=== PATIENT | male | born 1935 | race Caucasian/White ===

== ENCOUNTER 2017-06-02 08:55 | Outpatient (CLI) | payer MEDICARE ==
[2017-06-02 09:27] LABS: ALT (SGPT) 18 U/L (8-55); AST (SGOT) 18 U/L (5-34); Albumin 3.4 g/dL (3.4-4.8); Alkaline Phosphatase 80 U/L (40-150); Bilirubin, Direct 0.1 mg/dL (0.1-0.3); Bilirubin, Total 0.2 mg/dL (0.2-1.2); Protein, Total 5.7 g/dL (5.8-8.1)
[2017-06-02 18:10] LABS: Dilantin 18.3 ug/mL (10.0-20.0)
== END 2017-06-02 08:56 | disposition home or self-care (01) ==
LOC: BURLABSP 08:55
PROVIDERS: ATTEND Clinical Nurse Specialist Medical-Surgical
DX: G40.909 Epilepsy, unspecified, not intractable, without status epilepticus (principal); M81.0 Age-related osteoporosis without current pathological fracture; R53.83 Other fatigue; M62.50 Muscle wasting and atrophy, not elsewhere classified, unspecified site
CPT/HCPCS: 36415; 80076; 80185; 82306

== ENCOUNTER 2018-01-05 19:10 | Emergency (ER) | payer MEDICARE ==
[2018-01-05] MEDS ORDERED: Adacel (T-DAP) 0.5 ML VIAL ONE (19:40)
--- NOTE | 2018-01-05 23:19 | RAD ---
LEFT HAND THREE VIEWS: 01/05/18 No fracture or oblique foreign body was seen. Degenerative changes are seen in some of the IP joints of the fingers. There are also degenerative changes in the MCP joints. The carpal relations seem norm al. No acute carpal changes were seen. Degenerative change is particularly severe in the first carpom etacarpal joint. IMPRESSION: Degenerative changes as noted. POS: HOME
== END 2018-01-05 20:22 | disposition home or self-care (01) ==
LOC: BURERS 19:10
DX: S61.412A Laceration without foreign body of left hand, initial encounter (principal); G20 Parkinson's disease; M19.042 Primary osteoarthritis, left hand; W22.8XXA Striking against or struck by other objects, initial encounter; Y92.59 Other trade areas as the place of occurrence of the external cause
CPT/HCPCS: 12002; 90471; 90715; J2001

== ENCOUNTER 2018-01-11 10:52 | Outpatient (CLI) | payer MEDICARE ==
--- NOTE | 2018-01-12 07:28 | ULT ---
BILATERAL CAROTID ULTRASOUND 01/11/18 Color duplex doppler ultrasonography of the carotid and vertebral system was performed. The study was done to investigate carotid bruits. No significant amounts of plaque were seen in either carotid artery. Small amounts of intimal thicken ing are seen around the left carotid bifurcation. Flows were normal in the carotid systems bilaterally. Peak flow in the right ICA was 58/18 cm/s with a systolic velocity ratio of 0.97. This is normal. Flows in the left ICA were 88/22 with a normal 1.1 8 systolic velocity ratio. Flows in each common and external carotid arteries were normal bilaterally . Vertebral flow was antegrade bilaterally. IMPRESSION: No evidence of hemodynamically significant stenoses. POS: HOME
== END 2018-01-11 10:53 | disposition home or self-care (01) ==
LOC: BURULT 10:52
PROVIDERS: ATTEND Family Medicine
DX: R09.89 Other specified symptoms and signs involving the circulatory and respiratory systems (principal)
CPT/HCPCS: 93880

== ENCOUNTER 2019-07-15 13:45 | Emergency (ER) | payer MEDICARE ==
[2019-07-15] MEDS ORDERED: traMADol HCl 50 MG TAB ONE (14:33)
--- NOTE | 2019-07-15 17:51 | RAD ---
LEFT SHOULDER THREE VIEWS: Date: 07-15-19 FINDINGS: No fracture, dislocation, or AC joint widening was seen. The visible adjacent ribs appeared intact an d the visible portions of the left lung were clear. There is some bony spurring in the glenohumeral j oint. IMPRESSION: No acute traumatic finding. POS: HOME
--- NOTE | 2019-07-15 17:52 | CT ---
CT BRAIN WITHOUT CONTRAST: Date: 07-15-19 FINDINGS: The ventricles are minimally dilated, consistent with the degree of atrophy that is present. There is no ventricular shift. No intracranial bleeding or extraaxial hematoma was seen. There is no sign of mass, acute stroke, or edema. The skull appears intact. The visible paranasal sinuses are clear. Some of the mastoid air cells on the left near the mastoid tip are opaque, probably a long-standing findi ng. IMPRESSION: No acute intracranial findings. POS: HOME
== END 2019-07-15 14:40 | disposition home or self-care (01) ==
LOC: BURERS 13:45
DX: S40.012A Contusion of left shoulder, initial encounter (principal); S00.01XA Abrasion of scalp, initial encounter; W18.30XA Fall on same level, unspecified, initial encounter; Z79.899 Other long term (current) drug therapy
CPT/HCPCS: 70450

== ENCOUNTER 2019-10-17 14:59 | Emergency (ER) | payer MEDICARE ==
[2019-10-17 15:46] LABS: #Basophils 0.1 thou/uL (0.0-0.2); #Eosinphils 0.2 thou/uL (0.0-0.7); #Lymphocytes 1.9 thou/uL (1.20-3.40); #Monocytes 0.6 thou/uL (0.11-0.59); #Neutrophils 3.4 thou/uL (1.40-6.50); %Basophils 1.1 % (0.0-1.0); %Eosinophils 3.8 % (0.0-10.0); %Lymphocytes 31.1 % (21.0-51.0); %Neutrophils 53.9 % (42.0-75.0); Hemoglobin 11.8 g/dL (14.0-18.0); Mean Corpuscular Hemoglobin 33.3 pg (27.0-31.0); Mean Platelet Volume 6.2 fL (7.4-10.4); Platelet Count 250 thou/uL (130-400); RBC Distribution Width 12.3 % (11.5-14.5); Red Blood Cell (RBC) Count 3.54 mill/uL (4.70-6.10); White Blood Cell (WBC) Count 6.2 thou/uL (4.8-10.8)
[2019-10-17 16:02] LABS: ALT (SGPT) 14 U/L (8-55); AST (SGOT) 23 U/L (5-34); Albumin 4.2 g/dL (3.4-4.8); Alkaline Phosphatase 76 U/L (40-110); Anion Gap 13 mmol/L (10-20); BUN (Urea Nitrogen) 17 mg/dL (8.4-25.7); Bilirubin, Total 0.5 mg/dL (0.2-1.2); Calc. Creatinine Clearance 0 mL/min (70-130); Calcium 9.1 mg/dL (7.8-10.44); Carbon Dioxide 27 mmol/L (23-31); Chloride 102 mmol/L (98-107); Estimated GFR-MDRD Greater than 90; Globulin 3.2 g/dL (2.4-3.5); Glucose 101 mg/dL (83-110); Potassium 4.2 mmol/L (3.5-5.1); Protein, Total 7.4 g/dL (5.8-8.1); Sodium 138 mmol/L (136-145)
[2019-10-17] MEDS ORDERED: cefTRIAXone\\ROCEPHIN 2 GM VIAL ONE (16:29)
== END 2019-10-17 16:38 | disposition home or self-care (01) ==
LOC: BURERS 14:59
DX: L03.115 Cellulitis of right lower limb (principal); G20 Parkinson's disease; Z79.899 Other long term (current) drug therapy
CPT/HCPCS: 80053; 85025; 85379; 96374; J0696

== ENCOUNTER 2020-07-08 21:05 | Emergency (ER) | payer MEDICARE ==
[2020-07-08 22:42] LABS: #Basophils 0.1 thou/uL (0.0-0.2); #Eosinphils 0.2 thou/uL (0.0-0.7); #Lymphocytes 1.8 thou/uL (1.20-3.40); #Monocytes 0.8 thou/uL (0.11-0.59); #Neutrophils 7.1 thou/uL (1.40-6.50); %Eosinophils 2.1 % (0.0-10.0); %Lymphocytes 17.7 % (21.0-51.0); %Monocytes 8.1 % (0.0-10.0); %Neutrophils 71.1 % (42.0-75.0); Hemoglobin 12.6 g/dL (14.0-18.0); Mean Corpuscular HGB CONC 33.2 g/dL (32.0-36.0); Mean Corpuscular Hemoglobin 33.1 pg (27.0-31.0); Mean Corpuscular Volume 99.7 fL (78.0-98.0); Mean Platelet Volume 5.9 fL (7.4-10.4); Platelet Count 279 thou/uL (130-400); RBC Distribution Width 11.9 % (11.5-14.5); Red Blood Cell (RBC) Count 3.81 mill/uL (4.70-6.10)
[2020-07-08 22:56] LABS: ALT (SGPT) 23 U/L (8-55); AST (SGOT) 20 U/L (5-34); Albumin 3.9 g/dL (3.4-4.8); Alkaline Phosphatase 70 U/L (40-110); Anion Gap 16 mmol/L (10-20); BUN (Urea Nitrogen) 15 mg/dL (8.4-25.7); Bilirubin, Total 0.4 mg/dL (0.2-1.2); Calc. Creatinine Clearance 0 mL/min (70-130); Calcium 8.7 mg/dL (7.8-10.44); Carbon Dioxide 22 mmol/L (23-31); Chloride 101 mmol/L (98-107); Estimated GFR-MDRD 87; Globulin 3.3 g/dL (2.4-3.5); Glucose 120 mg/dL (83-110); Potassium 4.3 mmol/L (3.5-5.1); Protein, Total 7.2 g/dL (5.8-8.1); Sodium 135 mmol/L (136-145)
[2020-07-08] MEDS ORDERED: Lidocaine Viscous Sol 2% 15 ml UD Cup ONE (23:00)
[2020-07-09] MEDS ORDERED: Amoxicillin/Potassium Clav 875 MG TAB ONE (00:11)
--- NOTE | 2020-07-09 07:20 | CT ---
CT PELVIS WITHOUT CONTRAST: Date: 07/08/[address] of the pelvis was done following trauma. The patient is very osteopenic. This, plus his kyp hoscoliosis, decreases the sensitivity of this study somewhat. No pelvic fractures are seen. Both hips appear intact, even though osteopenic. The pelvic ring appear s intact. Degenerative changes are seen in both SI joints and the lower lumbar spine. See CT lumbar s pine for further details. There is no evidence of hematoma or significant amounts of free fluid in th e pelvis. Clips and presumably seeds are seen around the prostatic region. There is no sign of free a ir in the visualized areas. IMPRESSION: Chronic findings, but no acute traumatic changes. Preliminary report called to Dr. Lino at 2222 hours on 07/08/2020. CODE CR. POS: HOME
--- NOTE | 2020-07-09 07:26 | CT ---
CT LUMBAR SPINE: DATE: 07/08/2020 Osteopenia, kyphoscoliosis, and the overall positioning of the patient limits detail on this study so mewhat. No acute fracture of the lumbar spine was detected. There are some mild compressions of T9 through T1 2, and possibly L1. These appear more likely old than new. Degenerated discs are seen at all levels f rom T12-L1 and inferiorly. L2 and L3 are partially fused as a blocked vertebra. Central canal stenosi s is particularly notable at L3-L4, and to a lesser extent L4-L5. Disc herniations would be difficult to confirm given the anatomy present. IMPRESSION: Lumbar rotoscoliosis with multilevel degenerative disc disease, central canal stenosis (especially L3 -L4). Mild anterior wedging of T9 through T12 is probably old. Findings called to Dr. Lino at 2222 hours on 07/08/2020. CODE CR. POS: HOME
--- NOTE | 2020-07-09 08:07 | CT ---
CT THORACIC SPINE: DATE: 07/08/2020. FINDINGS: Spiral CT of the thoracic spine was done for evaluation following trauma. There is elevation of the right hemidiaphragm. There are infiltrative changes in the lower lobes posteriorly on each side, per haps a little more so on the right than the left. Some of this is doubtless chronic atelectasis, but I cannot rule out a superimposed acute infiltrate. A small hiatal hernia is noted. Regarding the thoracic spine, there is some mild anterior compression of T9 through T12 vertebral bod ies. This appears more likely old than new. I cannot definitely diagnose an acute fracture. MRI wo uld be more sensitive to such in this particular patient. Degenerative changes are present throughou t the entire thoracic spine. There is also anterior wedging of T6, but this also appears a bit more likely old than new. The upper part of the body of the sternum is angulated posteriorly a bit, but t his seems more likely old than new as well. IMPRESSION: 1. Very low sensitivity study due to the patient's kyphoscoliosis. Anterior wedging of T6 and T9 th rough T12. All of these are judged to be more likely old than new, as well as the sternal body findi ng. If focal pain continues in one certain area, then there may need to be rescanning, perhaps even with MRI if that is feasible in the patient looking for bony edema to prove an acute versus an old in jury. 2. Bibasilar streaking, particularly on the right. Cannot exclude superimposed acute infection and I do understand the patient has a low-grade fever. 3. Elevation of the right hemidiaphragm that seems more likely chronic than not. Findings discussed with Dr. Lino at 2222 on 07/08/2020. CODE CR POS: HOME
== END 2020-07-09 00:32 | disposition home or self-care (01) ==
LOC: BURERS 21:05
DX: S30.0XXA Contusion of lower back and pelvis, initial encounter (principal); J18.9 Pneumonia, unspecified organism; L89.312 Pressure ulcer of right buttock, stage 2; L89.152 Pressure ulcer of sacral region, stage 2; M40.205 Unspecified kyphosis, thoracolumbar region; G43.909 Migraine, unspecified, not intractable, without status migrainosus; G20 Parkinson's disease; M25.552 Pain in left hip; Z79.899 Other long term (current) drug therapy; W17.89XA Other fall from one level to another, initial encounter
CPT/HCPCS: 36415; 72128; 72131; 72192; 80053; 80185; 85025

== ENCOUNTER 2021-10-22 15:49 | Inpatient (IN) | payer MEDICARE ==
[2021-10-22 16:47] LABS: #Basophils 0.2 thou/uL (0.0-0.2); #Eosinphils 0.1 thou/uL (0.0-0.7); #Monocytes 1.2 thou/uL (0.11-0.59); #Neutrophils 7.5 thou/uL (1.40-6.50); %Basophils 1.6 % (0.0-1.0); %Eosinophils 0.7 % (0.0-10.0); %Neutrophils 75.7 % (42.0-75.0); Hemoglobin 11.1 g/dL (14.0-18.0); Mean Corpuscular HGB CONC 34.2 g/dL (32.0-36.0); Mean Corpuscular Hemoglobin 33.5 pg (27.0-31.0); Mean Platelet Volume 7.5 fL (7.4-10.4); Platelet Count 248 thou/uL (130-400); RBC Distribution Width 11.9 % (11.5-14.5); Red Blood Cell (RBC) Count 3.32 mill/uL (4.70-6.10); White Blood Cell (WBC) Count 9.9 thou/uL (4.8-10.8)
[2021-10-22 17:00] LABS: ALT (SGPT) 49 U/L (8-55); AST (SGOT) 55 U/L (5-34); Albumin 3.7 g/dL (3.4-4.8); Alkaline Phosphatase 67 U/L (40-110); Anion Gap 15 mmol/L (10-20); BUN (Urea Nitrogen) 11 mg/dL (8.4-25.7); Bilirubin, Total 0.4 mg/dL (0.2-1.2); Calc. Creatinine Clearance 0 mL/min (70-130); Calcium 8.4 mg/dL (7.8-10.44); Carbon Dioxide 23 mmol/L (23-31); Chloride 97 mmol/L (98-107); Globulin 3.1 g/dL (2.4-3.5); Glucose 124 mg/dL (83-110); Lipase 93 U/L (8-78); Protein, Total 6.8 g/dL (5.8-8.1); Sodium 131 mmol/L (136-145)
[2021-10-22 17:17] LABS: CKMB 1.8 ng/mL (0-6.6)
[2021-10-22 19:08] LABS: Bilirubin Small (Negative); Blood, Urine Trace (Negative); Clarity Cloudy (Clear); Glucose, Urine (Dipstick) Negative (Negative); Ketone, Urine 15 mg/dL (Negative); Leukocyte Negative (Negative); Nitrite Negative (Negative); Protein, Urine (Dipstick) 30 mg/dL (Neg-Trace); Urobilinogen 0.2 mg/dL (Less than 2); pH, Urine 8.5 (5.0-9.0)
[2021-10-22 19:16] LABS: Bacteria/HPF 1+ HPF (None Seen); RBC/HPF 0-3 HPF (0-3); Squamous Epithelial None Seen HPF (0-3); WBC/HPF 0-3 HPF (0-3)
[2021-10-22] MEDS ORDERED: Doxycycline 100 MG CAP ONE (20:09)
[2021-10-22] MEDS ORDERED: Acetaminophen 500 MG TAB ONE (20:20)
[2021-10-22] MEDS ORDERED: Sodium Chloride 0.9% 100 ML ONE (20:46)
[2021-10-22] MEDS ORDERED: cefTRIAXone\\ROCEPHIN 2 GM VIAL ONE (20:46)
[2021-10-23] MEDS ORDERED: Acetaminophen 325 MG TAB PO PRN (01:00)
[2021-10-23 02:31] VITALS: BMI 32.9
[2021-10-23] MEDS ORDERED: Polyethylene Glycol 3350 17 GM Packet PO PRN (07:13)
[2021-10-23] MEDS ORDERED: Ondansetron PF 4 MG/2 ML Vial IVP PRN (07:17)
[2021-10-23] MEDS ORDERED: Ibuprofen 800 MG TAB PO PRN (07:44)
[2021-10-23] MEDS ORDERED: FLU VACC QS2021-22(65YR UP)/PF 240 MCG/0.7 ML SYRINGE IM ONE (09:00)
[2021-10-23] MEDS: Magnesium Oxide 400 MG TAB PO SCH (10:26)
[2021-10-23] MEDS: Calcium Carbonate 600 MG + Vit D TAB PO SCH (10:27)
[2021-10-23] MEDS: Senokot S 8.6-50 MG TAB PO SCH ×2 (10:27→21:06)
[2021-10-23] MEDS: Enoxaparin Sodium 40 MG/0.4 ML SYRINGE SC SCH (10:27)
[2021-10-23] MEDS: Sodium Chloride 0.9% 1,000 ML IV SCH (10:28)
[2021-10-23] MEDS: Naproxen 500 MG TAB PO PRN (15:10)
[2021-10-23 15:52] LABS: SARS-CoV-2 NAA Rapid Test DETECTED (NotDetected)
[2021-10-23] MEDS: cefTRIAXone\\ROCEPHIN 1 GM in Sodium Chloride 0.9% 100 ML IVPB SCH (21:05)
[2021-10-24] MEDS: Sodium Chloride 0.9% 1,000 ML IV SCH ×3 (00:22→12:58)
[2021-10-24 06:31] LABS: Hemoglobin 10.6 g/dL (14.0-18.0); Mean Corpuscular HGB CONC 35.1 g/dL (32.0-36.0); Mean Corpuscular Hemoglobin 34.3 pg (27.0-31.0); Mean Corpuscular Volume 97.7 fL (78.0-98.0); Mean Platelet Volume 6.9 fL (7.4-10.4); Platelet Count 216 thou/uL (130-400); RBC Distribution Width 11.7 % (11.5-14.5); White Blood Cell (WBC) Count 5.3 thou/uL (4.8-10.8)
[2021-10-24 06:34] LABS: ALT (SGPT) 34 U/L (8-55); AST (SGOT) 35 U/L (5-34); Albumin 3.1 g/dL (3.4-4.8); Alkaline Phosphatase 57 U/L (40-110); Anion Gap 13 mmol/L (10-20); BUN (Urea Nitrogen) 12 mg/dL (8.4-25.7); Bilirubin, Total Less than 0.2 mg/dL (0.2-1.2); Calc. Creatinine Clearance 101 mL/min (70-130); Calcium 7.8 mg/dL (7.8-10.44); Carbon Dioxide 23 mmol/L (23-31); Chloride 98 mmol/L (98-107); Globulin 2.5 g/dL (2.4-3.5); Glucose 102 mg/dL (83-110); Potassium 3.7 mmol/L (3.5-5.1); Protein, Total 5.6 g/dL (5.8-8.1); Sodium 130 mmol/L (136-145)
[2021-10-24 07:06] LABS: Band 14 % (5-11); Eosinophils 1 % (0-10); Lymphocytes 12 % (21-51); MDiff Complete? YES; Metamyelocyte 1 % (0-0); Monocytes 13 % (0-10); Neutrophil 54 % (42-75); Reactive Lymphocytes 5 % (0-10)
[2021-10-24] MEDS: Senokot S 8.6-50 MG TAB PO SCH ×2 (08:50→21:14)
[2021-10-24] MEDS: Calcium Carbonate 600 MG + Vit D TAB PO SCH (08:50)
[2021-10-24] MEDS: Enoxaparin Sodium 40 MG/0.4 ML SYRINGE SC SCH (08:51)
[2021-10-24] MEDS: Magnesium Oxide 400 MG TAB PO SCH (08:51)
[2021-10-24] MEDS: Naproxen 500 MG TAB PO PRN (08:51)
[2021-10-24] MEDS ORDERED: Acetaminophen 325 MG TAB PO PRN (15:33)
[2021-10-24] MEDS ORDERED: Acetaminophen 650 MG Suppository PR PRN (15:34)
[2021-10-24] MEDS ORDERED: Benzonatate 100 MG CAP PO PRN (15:35)
[2021-10-24] MEDS ORDERED: Albuterol 200 PUFF (6.7GM INHALER) INH PRN (15:36)
[2021-10-24] MEDS: cefTRIAXone\\ROCEPHIN 1 GM in Sodium Chloride 0.9% 100 ML IVPB SCH (21:13)
[2021-10-25] MEDS: Sodium Chloride 0.9% 1,000 ML IV SCH ×3 (04:57→21:35)
[2021-10-25 05:57] LABS: ALT (SGPT) 29 U/L (8-55); AST (SGOT) 31 U/L (5-34); Albumin 2.9 g/dL (3.4-4.8); Alkaline Phosphatase 55 U/L (40-110); Bilirubin, Direct 0.1 mg/dL (0.1-0.3); Bilirubin, Total Less than 0.2 mg/dL (0.2-1.2); Protein, Total 5.2 g/dL (5.8-8.1)
[2021-10-25] MEDS: Magnesium Oxide 400 MG TAB PO SCH (10:15)
[2021-10-25] MEDS: Senokot S 8.6-50 MG TAB PO SCH ×2 (10:17→21:36)
[2021-10-25] MEDS: Calcium Carbonate 600 MG + Vit D TAB PO SCH (10:17)
[2021-10-25] MEDS: Enoxaparin Sodium 30 MG/0.3 ML SYRINGE SC SCH (10:18)
[2021-10-25] MEDS ORDERED: REMDESIVIR 200 MG in Sodium Chloride 0.9% 250 ML 210 ML IV SCH (13:45)
[2021-10-25] MEDS ORDERED: Sterile Water 20 ML ONE (14:06)
[2021-10-25] MEDS: cefTRIAXone\\ROCEPHIN 1 GM in Sodium Chloride 0.9% 100 ML IVPB SCH (21:35)
[2021-10-26 06:48] LABS: ALT (SGPT) 31 U/L (8-55); AST (SGOT) 38 U/L (5-34); Albumin 2.9 g/dL (3.4-4.8); Alkaline Phosphatase 66 U/L (40-110); Bilirubin, Direct 0.1 mg/dL (0.1-0.3); Bilirubin, Total Less than 0.2 mg/dL (0.2-1.2); Protein, Total 5.4 g/dL (5.8-8.1)
[2021-10-26] MEDS: Magnesium Oxide 400 MG TAB PO SCH (08:53)
[2021-10-26] MEDS: Senokot S 8.6-50 MG TAB PO SCH ×2 (08:54→20:52)
[2021-10-26] MEDS: Enoxaparin Sodium 30 MG/0.3 ML SYRINGE SC SCH (09:27)
[2021-10-26] MEDS: Calcium Carbonate 600 MG + Vit D TAB PO SCH (09:27)
[2021-10-26] MEDS: REMDESIVIR 100 MG in Sodium Chloride 0.9% 250 ML 230 ML IV SCH (10:53)
[2021-10-26 17:38] VITALS: TEMP 98.2
[2021-10-26] MEDS: cefTRIAXone\\ROCEPHIN 1 GM in Sodium Chloride 0.9% 100 ML IVPB SCH (20:51)
[2021-10-27 06:43] LABS: ALT (SGPT) 36 U/L (8-55); AST (SGOT) 46 U/L (5-34); Albumin 2.9 g/dL (3.4-4.8); Alkaline Phosphatase 69 U/L (40-110); Bilirubin, Direct 0.1 mg/dL (0.1-0.3); Bilirubin, Total 0.2 mg/dL (0.2-1.2); Protein, Total 4.8 g/dL (5.8-8.1)
[2021-10-27] MEDS ORDERED: Dexamethasone 4 MG TAB PO SCH (08:00)
[2021-10-27] MEDS: Enoxaparin Sodium 30 MG/0.3 ML SYRINGE SC SCH (09:07)
[2021-10-27] MEDS: Magnesium Oxide 400 MG TAB PO SCH (09:08)
[2021-10-27] MEDS: REMDESIVIR 100 MG in Sodium Chloride 0.9% 250 ML 230 ML IV SCH (09:09)
[2021-10-27] MEDS: Calcium Carbonate 600 MG + Vit D TAB PO SCH (09:09)
[2021-10-27] MEDS: Senokot S 8.6-50 MG TAB PO SCH (09:09)
[2021-10-27 16:17] VITALS: BP 91/53
[2021-10-27] MEDS ORDERED: Doxycycline 100 MG CAP PO SCH (21:00)
== END 2021-10-27 16:09 | disposition swing bed (61) | DRG 177 ==
LOC: BURERS 15:49 → BURMED 10-23 00:14
PROVIDERS: ADMIT Family Medicine; ATTEND Family Medicine
PROC: 8E0ZXY6 Isolation (ICD-10-PCS; 2021-10-23)
PROC: XW033E5 Introduction of Remdesivir Anti-infective into Peripheral Vein, Percutaneous Approach, New Technology Group 5 (ICD-10-PCS; principal; 2021-10-24)
DX: U07.1 COVID-19 (principal); J12.82 Pneumonia due to coronavirus disease 2019; G40.909 Epilepsy, unspecified, not intractable, without status epilepticus; G20 Parkinson's disease; M25.552 Pain in left hip; R53.1 Weakness; E86.0 Dehydration; Z85.828 Personal history of other malignant neoplasm of skin; Z90.79 Acquired absence of other genital organ(s)
CPT/HCPCS: 36415; 71045; 74176; 80053; 80076; 81003; 81015; 82553; 83605; 83690; 84484; 85025; 85379; 86140; 87040; 87077; 87149; 87186; 93005; 96365; J0248; J0696; J1650; J3490; J7050; J8540; U0002

== ENCOUNTER 2021-10-27 12:16 | Inpatient (IN) | payer MEDICARE ==
[2021-10-27] MEDS ORDERED: Benzonatate 100 MG CAP PO PRN (17:20)
[2021-10-27] MEDS ORDERED: Albuterol 200 PUFF (6.7GM INHALER) INH PRN (17:20)
[2021-10-27] MEDS ORDERED: Polyethylene Glycol 3350 17 GM Packet PO PRN (17:21)
[2021-10-27] MEDS ORDERED: Acetaminophen 325 MG TAB PO PRN (17:21)
[2021-10-27] MEDS ORDERED: Acetaminophen 650 MG Suppository PR PRN (17:22)
[2021-10-27] MEDS ORDERED: Naproxen 500 MG TAB PO PRN (17:22)
[2021-10-27 18:04] VITALS: BMI 32.9
[2021-10-27] MEDS ORDERED: FLU VACC QS2021-22(65YR UP)/PF 240 MCG/0.7 ML SYRINGE IM ONE (18:45)
[2021-10-27] MEDS: Doxycycline 100 MG CAP PO SCH (20:55)
[2021-10-27] MEDS: Senokot S 8.6-50 MG TAB PO SCH (20:55)
[2021-10-28] MEDS: Calcium Carbonate 600 MG + Vit D TAB PO SCH (05:14)
[2021-10-28] MEDS: Magnesium Oxide 400 MG TAB PO SCH (05:14)
[2021-10-28] MEDS: Dexamethasone 4 MG TAB PO SCH (09:47)
[2021-10-28] MEDS: Senokot S 8.6-50 MG TAB PO SCH ×2 (09:48→20:51)
[2021-10-28] MEDS: Doxycycline 100 MG CAP PO SCH ×2 (09:48→20:51)
[2021-10-28] MEDS: Enoxaparin Sodium 30 MG/0.3 ML SYRINGE SC SCH (09:48)
[2021-10-28] MEDS: REMDESIVIR 100 MG in Sodium Chloride 0.9% 250 ML 230 ML IV SCH (09:49)
[2021-10-29] MEDS: Calcium Carbonate 600 MG + Vit D TAB PO SCH (05:03)
[2021-10-29] MEDS: Magnesium Oxide 400 MG TAB PO SCH (05:03)
[2021-10-29] MEDS: REMDESIVIR 100 MG in Sodium Chloride 0.9% 250 ML 230 ML IV SCH (08:54)
[2021-10-29] MEDS: Doxycycline 100 MG CAP PO SCH ×2 (08:55→21:56)
[2021-10-29] MEDS: Senokot S 8.6-50 MG TAB PO SCH ×2 (08:55→21:56)
[2021-10-29] MEDS: Dexamethasone 4 MG TAB PO SCH (08:56)
[2021-10-29] MEDS: Enoxaparin Sodium 30 MG/0.3 ML SYRINGE SC SCH (08:58)
[2021-10-29] MEDS: Ondansetron ODT 4 MG TAB PO PRN (15:28)
[2021-10-30] MEDS: Calcium Carbonate 600 MG + Vit D TAB PO SCH (05:13)
[2021-10-30] MEDS: Magnesium Oxide 400 MG TAB PO SCH (05:13)
[2021-10-30] MEDS: Enoxaparin Sodium 30 MG/0.3 ML SYRINGE SC SCH (09:21)
[2021-10-30] MEDS: Dexamethasone 4 MG TAB PO SCH (09:22)
[2021-10-30] MEDS: Senokot S 8.6-50 MG TAB PO SCH ×2 (09:22→20:37)
[2021-10-30] MEDS: Doxycycline 100 MG CAP PO SCH ×2 (09:22→20:38)
[2021-10-30] MEDS: Ondansetron PF 4 MG/2 ML Vial IVP PRN (12:52)
[2021-10-30] MEDS: Ondansetron ODT 4 MG TAB PO PRN (21:26)
[2021-10-31] MEDS: Magnesium Oxide 400 MG TAB PO SCH (05:24)
[2021-10-31] MEDS: Calcium Carbonate 600 MG + Vit D TAB PO SCH (05:24)
[2021-10-31] MEDS: Senokot S 8.6-50 MG TAB PO SCH ×2 (10:14→22:00)
[2021-10-31] MEDS: Dexamethasone 4 MG TAB PO SCH (10:15)
[2021-10-31] MEDS: Ondansetron ODT 4 MG TAB PO PRN (10:16)
[2021-10-31] MEDS: Doxycycline 100 MG CAP PO SCH ×2 (10:16→22:00)
[2021-10-31] MEDS: Enoxaparin Sodium 30 MG/0.3 ML SYRINGE SC SCH (10:16)
[2021-11-01] MEDS: Ondansetron PF 4 MG/2 ML Vial IVP PRN ×2 (05:24→11:27)
[2021-11-01] MEDS: Calcium Carbonate 600 MG + Vit D TAB PO SCH (05:29)
[2021-11-01] MEDS: Magnesium Oxide 400 MG TAB PO SCH (05:29)
[2021-11-01] MEDS: Dexamethasone 4 MG TAB PO SCH (11:26)
[2021-11-01] MEDS: Senokot S 8.6-50 MG TAB PO SCH ×2 (11:26→22:07)
[2021-11-01] MEDS: Enoxaparin Sodium 30 MG/0.3 ML SYRINGE SC SCH (11:27)
[2021-11-01] MEDS: Doxycycline 100 MG CAP PO SCH (11:27)
[2021-11-01] MEDS ORDERED: Sodium Chloride 0.9% 500 ML IVPB SCH (15:30)
[2021-11-02] MEDS: Calcium Carbonate 600 MG + Vit D TAB PO SCH (06:19)
[2021-11-02] MEDS: Magnesium Oxide 400 MG TAB PO SCH (06:19)
[2021-11-02 08:10] LABS: #Basophils 0.1 thou/uL (0.0-0.2); #Eosinphils 0.2 thou/uL (0.0-0.7); #Lymphocytes 2.1 thou/uL (1.20-3.40); #Monocytes 0.8 thou/uL (0.11-0.59); #Neutrophils 3.4 thou/uL (1.40-6.50); %Eosinophils 2.3 % (0.0-10.0); %Lymphocytes 31.3 % (21.0-51.0); %Monocytes 12.5 % (0.0-10.0); %Neutrophils 51.9 % (42.0-75.0); Hemoglobin 11.5 g/dL (14.0-18.0); Mean Corpuscular Hemoglobin 33.8 pg (27.0-31.0); Mean Corpuscular Volume 96.7 fL (78.0-98.0); Mean Platelet Volume 6.7 fL (7.4-10.4); Platelet Count 324 thou/uL (130-400); RBC Distribution Width 11.6 % (11.5-14.5); Red Blood Cell (RBC) Count 3.41 mill/uL (4.70-6.10); White Blood Cell (WBC) Count 6.6 thou/uL (4.8-10.8)
[2021-11-02 08:12] LABS: ALT (SGPT) 19 U/L (8-55); AST (SGOT) 19 U/L (5-34); Albumin 2.9 g/dL (3.4-4.8); Alkaline Phosphatase 85 U/L (40-110); Anion Gap 13 mmol/L (10-20); BUN (Urea Nitrogen) 17 mg/dL (8.4-25.7); Bilirubin, Total 0.4 mg/dL (0.2-1.2); Calc. Creatinine Clearance 98 mL/min (70-130); Calcium 8.1 mg/dL (7.8-10.44); Carbon Dioxide 24 mmol/L (23-31); Chloride 98 mmol/L (98-107); Globulin 2.7 g/dL (2.4-3.5); Glucose 97 mg/dL (83-110); Potassium 4.4 mmol/L (3.5-5.1); Protein, Total 5.6 g/dL (5.8-8.1); Sodium 131 mmol/L (136-145)
[2021-11-02] MEDS: Senokot S 8.6-50 MG TAB PO SCH ×2 (10:55→21:49)
[2021-11-02] MEDS: Dexamethasone 4 MG TAB PO SCH (10:55)
[2021-11-02] MEDS: Enoxaparin Sodium 30 MG/0.3 ML SYRINGE SC SCH (10:56)
[2021-11-02] MEDS: Ondansetron PF 4 MG/2 ML Vial IVP PRN (13:00)
[2021-11-02] MEDS: Ondansetron ODT 4 MG TAB PO PRN (13:07)
[2021-11-02 18:19] VITALS: TEMP 98.6
[2021-11-03 06:20] VITALS: BP 107/56
[2021-11-03] MEDS: Magnesium Oxide 400 MG TAB PO SCH (06:21)
[2021-11-03] MEDS: Calcium Carbonate 600 MG + Vit D TAB PO SCH (06:21)
[2021-11-03] MEDS: Ondansetron ODT 4 MG TAB PO PRN (09:07)
[2021-11-03] MEDS: Senokot S 8.6-50 MG TAB PO SCH (09:08)
[2021-11-03] MEDS: Dexamethasone 4 MG TAB PO SCH (09:08)
[2021-11-03] MEDS: Enoxaparin Sodium 30 MG/0.3 ML SYRINGE SC SCH (09:10)
== END 2021-11-03 14:40 | disposition home or self-care (01) | DRG 177 ==
LOC: BURMED 16:10
PROVIDERS: ADMIT Family Medicine; ATTEND Family Medicine
PROC: 8E0ZXY6 Isolation (ICD-10-PCS; 2021-10-27)
PROC: XW033E5 Introduction of Remdesivir Anti-infective into Peripheral Vein, Percutaneous Approach, New Technology Group 5 (ICD-10-PCS; principal; 2021-10-28)
DX: U07.1 COVID-19 (principal); J12.82 Pneumonia due to coronavirus disease 2019; E86.0 Dehydration; G20 Parkinson's disease; G40.909 Epilepsy, unspecified, not intractable, without status epilepticus; M40.209 Unspecified kyphosis, site unspecified; R09.02 Hypoxemia
CPT/HCPCS: 36415; 80053; 85025; J0248; J1650; J2405; J7030; J7050; J8540; Q0162

== ENCOUNTER 2022-02-08 17:14 | Emergency (ER) | payer MEDICARE ==
[2022-02-08 17:56] LABS: #Basophils 0.1 thou/uL (0.0-0.2); #Eosinphils 0.4 thou/uL (0.0-0.7); #Lymphocytes 2.4 thou/uL (1.20-3.40); #Monocytes 0.8 thou/uL (0.11-0.59); #Neutrophils 8.4 thou/uL (1.40-6.50); %Basophils 0.7 % (0.0-1.0); %Eosinophils 3.3 % (0.0-10.0); %Lymphocytes 20.1 % (21.0-51.0); %Monocytes 6.5 % (0.0-10.0); %Neutrophils 69.4 % (42.0-75.0); Hemoglobin 12.8 g/dL (14.0-18.0); MDiff Complete? YES; Macrocytosis SLIGHT = 6-15 cells (100X) (0-5/hpf); Mean Corpuscular HGB CONC 33.9 g/dL (32.0-36.0); Mean Corpuscular Hemoglobin 34.6 pg (27.0-31.0); Platelet Count 236 thou/uL (130-400); White Blood Cell (WBC) Count 12.1 thou/uL (4.8-10.8)
[2022-02-08 18:13] LABS: ALT (SGPT) 25 U/L (8-55); AST (SGOT) 21 U/L (5-34); Albumin 3.6 g/dL (3.4-4.8); Alkaline Phosphatase 73 U/L (40-110); Anion Gap 15 mmol/L (10-20); BUN (Urea Nitrogen) 21 mg/dL (8.4-25.7); Bilirubin, Total 0.3 mg/dL (0.2-1.2); Calc. Creatinine Clearance 0 mL/min (70-130); Calcium 8.4 mg/dL (7.8-10.44); Carbon Dioxide 23 mmol/L (23-31); Chloride 104 mmol/L (98-107); Globulin 3.3 g/dL (2.4-3.5); Glucose 177 mg/dL (83-110); Potassium 4.4 mmol/L (3.5-5.1); Protein, Total 6.9 g/dL (5.8-8.1); Sodium 138 mmol/L (136-145)
[2022-02-08 18:26] LABS: CKMB 1.8 ng/mL (0-6.6)
[2022-02-08 21:43] LABS: CKMB 1.8 ng/mL (0-6.6)
[2022-02-09 00:55] LABS: SARS-CoV-2 PCR by NAA Not Detected (NotDetected)
== END 2022-02-08 23:50 | disposition short-term general hospital (02) ==
LOC: BURERS 17:14
DX: R06.09 Other forms of dyspnea (principal); R77.8 Other specified abnormalities of plasma proteins; G40.909 Epilepsy, unspecified, not intractable, without status epilepticus; Z20.822 Contact with and (suspected) exposure to COVID-19
CPT/HCPCS: 71045; 80053; 82553; 83880; 84484 ×2; 85025; 85379; 93005; U0003; U0005; 36415

== ENCOUNTER 2022-11-06 16:30 | Emergency (ER) | payer MEDICARE | END 2022-11-06 16:51 | disposition home or self-care (01) | LOC: BURERS 16:30 | DX: H11.31 Conjunctival hemorrhage, right eye (principal); G40.909 Epilepsy, unspecified, not intractable, without status epilepticus; Z79.899 Other long term (current) drug therapy | CPT/HCPCS: 99282 ==